=== PATIENT | male | born 1975 | race Caucasian/White ===

== ENCOUNTER 2016-11-29 20:00 | Emergency (ER) | payer SELFPAY ==
[~2016-11-29] VITALS: Ht 180.3 cm; Wt 136.3 kg
[2016-11-29 20:13] VITALS: BP 146/81
[2016-11-29] MEDS ORDERED: ACET325T9 PO (20:24)
--- NOTE | 2016-11-29 20:26 | PHYS DOC ---
Past History Past Medical History: No Pertinent History Past Surgical History: No Surgical History Alcohol Use: None Adult General Chief Complaint Chief Complaint: LACERATION/AVULSION HPI HPI 41-year-old presents to the emergency department today with head injury. He reports walking on a boat ramp when he slipped and fell and hit the back of his head. He denies loss of consciousness. he denies rhinorrhea vision changes nausea or vomiting. He denies neck pain. He has a mild headache that is sharp nonradiating constant and without alleviating factors. He has not tried taking for his headache. Review of systems is negative for chest pain shortness of breath abdominal pain nausea or vomiting. All other review of systems is negative unless otherwise noted in history of present illness. Review of Systems Review of Systems SEE ABOVE. Allergies Allergies Allergies Coded Allergies Type Severity Reaction Last Updated Verified No Known Drug Allergies 11/29/16 No Physical Exam Physical Exam Constitutional: Well developed, well nourished, no acute distress, non-toxic appearance. [] HENT: Normocephalic, 1.5 cm laceration on the posterior occiput., bilateral external ears normal, oropharynx moist, no oral exudates, nose normal. [] No evidence of hemotympanum. Eyes: PERRLA, EOMI, conjunctiva normal, no discharge. [] Neck: Normal range of motion, no tenderness, supple, no stridor. Nontender in the cervical lumbar and thoracic spine. No step-offs. Cardiovascular:Heart rate regular rhythm, no murmur [] Lungs & Thorax: Bilateral breath sounds clear to auscultation [] Abdomen: Bowel sounds normal, soft, no tenderness, no masses, no pulsatile masses. [] Skin: Warm, dry, no erythema, no rash. [] Back: No tenderness, no CVA tenderness. [] Extremities: No tenderness, no cyanosis, no clubbing, ROM intact, no edema. [] Neurologic: Mental status: Awake oriented and alert x3 Cranial nerves: Extraocular movements intact, eyebrows jesse bilaterally smile symmetric, uvula elevation, shoulder shrug intact, tongue protrusion normal DTRs: 2+ Sensation: equal and normal in all extremities Strength: 5/5 in upper and lower extremities bilaterally Psychologic: Affect normal, judgement normal, mood normal. [] EKG EKG [] Radiology/Procedures Radiology/Procedures [] Course & Med Decision Making Course & Med Decision Making Pertinent Labs and Imaging studies reviewed. (See chart for details) [] 41-year-old gentleman presenting after sustaining head injury today. [place] head CT rules applied. CT not recommended. No other injuries identified on secondary survey. Laceration was repaired in the emergency department the patient was subsequently discharged home. Dragon Disclaimer Dragon Disclaimer This chart was dictated in whole or in part using Voice Recognition software in a busy, high-work load, and often noisy Emergency Department environment. It may contain unintended and wholly unrecognized errors or omissions. Departure Departure: Impression: Primary Impression: Scalp laceration Disposition: HOME, SELF-CARE Condition: STABLE Referrals: PCP,NO (PCP) SHIRA KINCAID MD Patient Instructions: Facial or Scalp Contusion, [id number], Laceration Care , Adult Additional Instructions: Thank you for allowing us to participate in your care today. Followup with your primary care physician in 3 days if your symptoms do not improve. If you do not have a primary care provider you can ask for a list of our primary care providers. Return to the emergency department you have any new or concerning findings. This should be evaluated by the primary care physician and any necessary consulting services for continued management within a few days after discharge. Return to emergency room if you have any new or concerning symptoms including but not limited to fever, chills, nausea, vomiting, intractable pain, any new rashes, chest pain, shortness of air, uncontrolled bleeding, difficulty breathing, and/or vision loss. Scripts Acetaminophen (TYLENOL) 325 Mg Tablet 1 TAB PO PRN Q4HRS, #30 TAB Prov: PEDRO COOLEY MD 11/29/16 Laceration Repair Lac Repair Indication: Scalp laceration Procedure: The patient was placed in the appropriate position and anesthesia around the posterior occiput.. The area was then cleansed with normal saline.. The laceration was closed using one staple. Total repaired wound length: 1.5cm. Other Items: none. The patient tolerated the procedure well. Complications: none. Problem Qualifiers Primary Impression: Scalp laceration Encounter type: initial encounter Qualified Codes: S01.01XA - Laceration without foreign body of scalp, initial encounter PEDRO COOLEY MD November 29, 2016 20:26
== END 2016-11-29 20:55 | disposition home or self-care (01) ==
LOC: ER 20:10
DX: S01.01XA Laceration without foreign body of scalp, initial encounter (principal); W01.198A Fall on same level from slipping, tripping and stumbling with subsequent striking against other object, initial encounter; Y93.89 Activity, other specified; Y99.8 Other external cause status; Y92.89 Other specified places as the place of occurrence of the external cause
CPT/HCPCS: 12001; 99283-25